=== PATIENT | male | born 1995 | race Caucasian/White ===

== ENCOUNTER 2020-09-09 22:16 | Emergency (ER) | payer OTHER ==
[2020-09-10] MEDS ORDERED: BACTROBAN NASAL1 GM TOP (00:16)
[2020-09-10] MEDS ORDERED: AUGMENTIN 875-1 EACH PO (00:16)
== END 2020-09-10 00:28 | disposition home or self-care (01) ==
LOC: FER 22:16
DX: S61.451A Open bite of right hand, initial encounter (principal); Z23 Encounter for immunization; W54.0XXA Bitten by dog, initial encounter; Y92.009 Unspecified place in unspecified non-institutional (private) residence as the place of occurrence of the external cause
CPT/HCPCS: 73130; 90471; 90715